=== PATIENT | male | born 1955 | race Caucasian/White ===

== ENCOUNTER 2018-04-24 08:39 | Day surgery (SDC) | payer BC ==
[2018-04-24] MEDS ORDERED: CEFAZOLIN 2 GM/50 ML (PMX) 50 ML IVPB (09:00)
[2018-04-24] MEDS ORDERED: MIDAZOLAM 1 MG/ML 2 ML INJ (10:56)
[2018-04-24] MEDS ORDERED: POLYMYXIN/BACITRACIN 1L IRRIG (11:27)
[2018-04-24] MEDS: LIDOCAINE 1% (MPF) 30 ML INJ (11:36)
[2018-04-24] MEDS: BUPIVACAINE 0.25%/EPI (SDV) 30 ML INJ (11:36)
[2018-04-24] MEDS ORDERED: ROPIVACAINE 0.5 % 30 ML VIAL (12:47)
[2018-04-24] MEDS ORDERED: PROPOFOL 20 ML (12:50)
[2018-04-24] MEDS ORDERED: NEOSTIGMINE 3 MG/3 ML SYRINGE (12:50)
[2018-04-24] MEDS ORDERED: ROCURONIUM 50 MG INJ (12:50)
[2018-04-24] MEDS ORDERED: ONDANSETRON 4 MG INJ (12:50)
[2018-04-24] MEDS ORDERED: GLYCOPYRROLATE 0.4 MG INJ (12:50)
[2018-04-24] MEDS ORDERED: ETOMIDATE 20 MG INJ (12:50)
[2018-04-24] MEDS ORDERED: ONDANSETRON 4 MG INJ IV (13:00)
[2018-04-24] MEDS ORDERED: OXYCODONE/ACETAMINOPHEN (5/325) TAB PO (13:00)
[2018-04-24] MEDS ORDERED: KETOROLAC 30 MG INJ (13:04)
[2018-04-24] MEDS ORDERED: CEFAZOLIN 1 GM INJ (13:12)
[2018-04-24] MEDS ORDERED: LABETALOL HCL 20MG INJ (13:28)
[2018-04-24] MEDS ORDERED: HYDROmorphONE 1 MG/5 ML IV SYRINGE IV (13:28)
[2018-04-24] MEDS ORDERED: DIPHENHYDRAMINE 50 MG INJ IV (13:30)
[2018-04-24] MEDS ORDERED: METOCLOPRAMIDE 10 MG INJ IV (13:30)
[2018-04-24] MEDS ORDERED: FENTAnyl 50 MCG/ML VIAL IV (13:30)
[2018-04-24] MEDS ORDERED: hydrALAzine 20 MG INJ IV (13:30)
[2018-04-24] MEDS ORDERED: MEPERIDINE 25 MG INJ IV (13:30)
[2018-04-24] MEDS: LABETALOL HCL 20MG INJ IV (13:32)
[2018-04-24] MEDS: HYDROmorphONE 1 MG/5 ML IV SYRINGE IV ×3 (13:32→13:44)
[2018-04-24] MEDS: ONDANSETRON 4 MG INJ IV (13:48)
[2018-04-24] MEDS: OXYCODONE/ACETAMINOPHEN (5/325) TAB PO (14:09)
[2018-04-24] MEDS: morphine 2 MG INJ IV (15:13)
== END 2018-04-24 15:30 | disposition home or self-care (01) ==
LOC: SDS 08:39
DX: K40.20 Bilateral inguinal hernia, without obstruction or gangrene, not specified as recurrent (principal); K43.9 Ventral hernia without obstruction or gangrene; I10 Essential (primary) hypertension; E66.9 Obesity, unspecified; Z68.28 Body mass index [BMI] 28.0-28.9, adult
CPT/HCPCS: 49650

== ENCOUNTER 2018-05-07 15:36 | Emergency (ER) | payer BC ==
[2018-05-07] MEDS: OXYCODONE/ACETAMINOPHEN (5/325) TAB PO (19:27)
== END 2018-05-07 19:32 | disposition home or self-care (01) ==
LOC: E/R 15:36
DX: R10.2 Pelvic and perineal pain (principal); F17.210 Nicotine dependence, cigarettes, uncomplicated; Z48.89 Encounter for other specified surgical aftercare; Z85.51 Personal history of malignant neoplasm of bladder
CPT/HCPCS: 99283